=== PATIENT | male | born 1995 | race Caucasian/White ===

== ENCOUNTER 2018-01-18 23:10 | Emergency (ER) | payer SELFPAY ==
[~2018-01-18] VITALS: Ht 177.8 cm; Wt 88.0 kg
[2018-01-18 23:23] VITALS: Ht 177.8 cm; Wt 88.0 kg
[2018-01-19 00:04] LABS: BASOPHIL % 0.4 % (0-2); PLATELET COUNT 247 x10^3mcL (130-400); RED CELL DISTRIBUTION WIDTH 13.3 % (11.5-14.5)
[2018-01-19 00:15] LABS: CARBON DIOXIDE 24.8 mmol/L (21-32); CHLORIDE SERUM 105 mmol/L (98-107); CREATININE SERUM 0.9 mg/dL (0.7-1.3); GFR1 > 60 mL/min; GLUCOSE SERUM 106 mg/dL (74-106); POTASSIUM SERUM 3.7 mmol/L (3.5-5.1); SODIUM SERUM 139 mmol/L (136-145)
[2018-01-19 00:19] LABS: ALKALINE PHOSPHATASE 81 U/L (46-116); ALT/SGPT 35 U/L (16-63); AST/SGOT 20 U/L (15-37); BILIRUBIN TOTAL 0.3 mg/dL (0.20-1.00); TOTAL PROTEIN, SERUM 7.3 g/dL (6.4-8.2)
[2018-01-19 00:23] LABS: AMPHETAMINE QUAL UR NONE DETECTED (NEG <=1000)
[2018-01-19 04:37] VITALS: BP 135/86
== END 2018-01-19 04:37 | disposition home or self-care (01) ==
LOC: ED 23:10
PROVIDERS: Emergency Medicine
DX: R07.2 Precordial pain (principal); E78.00 Pure hypercholesterolemia, unspecified; R51 Headache; R42 Dizziness and giddiness
CPT/HCPCS: 83880; J1885; J7030; Q0092

== ENCOUNTER 2019-05-14 16:04 | Emergency (ER) | payer MEDICAID ==
[~2019-05-14] VITALS: Ht 165.1 cm; Wt 86.6 kg
[2019-05-14 16:15] VITALS: Ht 165.1 cm; Wt 86.6 kg
[2019-05-14 19:00] VITALS: BP 134/81
== END 2019-05-14 19:01 | disposition home or self-care (01) ==
LOC: ED 16:04
DX: S91.101A Unspecified open wound of right great toe without damage to nail, initial encounter (principal); W29.8XXA Contact with other powered hand tools and household machinery, initial encounter; Y93.89 Activity, other specified; Y92.89 Other specified places as the place of occurrence of the external cause; Y99.8 Other external cause status
CPT/HCPCS: 90715

== ENCOUNTER 2019-06-03 15:02 | Emergency (ER) | payer MEDICAID ==
[~2019-06-03] VITALS: Ht 170.2 cm; Wt 86.6 kg
[2019-06-03 15:11] VITALS: Ht 170.2 cm; Wt 86.6 kg
[2019-06-03 15:40] VITALS: BP 135/83
== END 2019-06-03 15:40 | disposition home or self-care (01) ==
LOC: ED 15:02
DX: S05.01XA Injury of conjunctiva and corneal abrasion without foreign body, right eye, initial encounter (principal); Z98.890 Other specified postprocedural states; W45.8XXA Other foreign body or object entering through skin, initial encounter; Y93.89 Activity, other specified; Y92.89 Other specified places as the place of occurrence of the external cause; Y99.8 Other external cause status